=== PATIENT | female | born 1965 | race Caucasian/White ===

== ENCOUNTER 2021-08-01 07:35 | Day surgery (SDC) | payer BC ==
[2021-08-01] MEDS ORDERED: Ringers Lactate 1,000 ML IV ONE (08:02)
[2021-08-01] MEDS ORDERED: MIDAZOLAM HCL 2 MG/2 ML INJ ONE (08:47)
[2021-08-01] MEDS ORDERED: FENTANYL CITR 100 MCG/2 ML ONE (08:47)
[2021-08-01] MEDS ORDERED: propofoL 200 MG/20 ML VIAL IV ONE (08:48)
[2021-08-01] MEDS ORDERED: GLYCOPYRROLATE 0.2 MG/ML SYR ONE (08:50)
[2021-08-01] MEDS ORDERED: dexAMETHasone 10 MG/ML VIAL ONE (08:51)
[2021-08-01] MEDS ORDERED: KETOROLAC 30 MG/ML INJ ONE (08:51)
[2021-08-01] MEDS ORDERED: ONDANSETRON 4 MG/2 ML VIAL ONE (08:52)
[2021-08-01] MEDS ORDERED: EPHEDRINE SULF 50 MG/ML VIAL ONE (09:37)
[2021-08-01] MEDS: LIDOCAINE 1% MPF 2 ML AMPULE ONE ×2 (09:37→10:03)
[2021-08-01 09:58] VITALS: O2SAT 100
[2021-08-01] MEDS ORDERED: LIDOCAINE 1% W/EPI 1:100,000 MDV 20 ML VIAL ONE (09:59)
--- NOTE | 2021-08-01 10:00 | P.BOP ---
Preoperative diagnosis: PMB, Endometrial polyp Postoperative diagnosis: same Primary procedure: hysteroscopy polypectomy d/c w myosure lite Window Shade Ring Coverer: NONE,NONE Estimated blood loss: min Specimen: polyp and emc Findings: polyp in the cavity Anesthesia: General Complications: None Transferred to: Recovery Room
[2021-08-01 11:23] VITALS: BP 115/60; TEMP 96.2
--- NOTE | 2021-08-01 11:24 | OP ---
Date of Procedure: 08/01/2021 Surgeon: Shobha Lopez MD Laborer Pullet Farm: No assistants. Procedure Performed: Hysteroscopy, polypectomy, dilatation and curettage with MyoSure Lite. Specimens: Endometrial curettings. Complications: No complications. Drains: No drains. Condition: Stable. Findings: Endometrial cavity with a polyp about a cm and half arising from the fundal portion up to the endometrium, slightly thickened and mostly unremarkable. The entire cavity was well visualized. Anesthesia: General with LMA and a paracervical block. Indications: The patient is a 56-year-old who had office hysteroscopy. Endometrial polyp was found. For entire removal of the polyp and adequate sampling, she was consented and brought to the [facility]. Description Of Procedure: After informed consent was re-verified, she was taken back to OR, placed i n supine fashion on the operating table. General anesthesia was given. Using an LMA then, she was p laced in a dorsal lithotomy position. Vulva, vagina prepped and draped in a sterile fashion. Specul um placed to expose the cervix. Anterior lip grasped with 2 Allis clamps. Then at the 4 and 8 o'hemal ck positions of the cervical vaginal junction, 10 cc each of the lidocaine 1% with epi was injected f or a block. Then, the cervix was dilated to 16-Gambian. The large MyoSure scope was taken with a 0 d egree lens. After priming the entire machine, then started the procedure. Normal saline was the dis tention medium and set pressure at 80 mmHg. Direct hysteroscopy was performed to enter into the uter ine canal. Endometrial polyp was well visualized. The MyoSure Lite was inserted through the operati ng channel and polypectomy was performed with this. Then, endometrial curettage was also performed w ith the MyoSure Lite. Pictures were taken. All the instruments were removed and scope was pulled ou t. Instrument, needle, and sponge counts were correct at the end of the case. The procedure was com pleted and specimen sent for permanent pathology. She will follow up with me in 1 week and will make a plan. SOULEYMANE/NATHEN Voice ID: [id number] Report ID: [id number]
[2021-08-01] MEDS ORDERED: METOPROLOL TAR 50 MG TAB PO SCH (21:00)
[2021-08-02] MEDS ORDERED: ATORVASTATIN 20 MG TAB PO SCH (09:00)
== END 2021-08-01 11:13 | disposition home or self-care (01) ==
LOC: OR 07:35
PROVIDERS: ATTEND Obstetrics & Gynecology
PROC: 0UDB7ZX Extraction of Endometrium, Via Natural or Artificial Opening, Diagnostic (ICD-10-PCS; 2021-08-01)
PROC: 0UJD8ZZ Inspection of Uterus and Cervix, Via Natural or Artificial Opening Endoscopic (ICD-10-PCS; 2021-08-01)
PROC: 0UB97ZX Excision of Uterus, Via Natural or Artificial Opening, Diagnostic (ICD-10-PCS; principal; 2021-08-01 09:00)
DX: N84.0 Polyp of corpus uteri (principal); Z20.822 Contact with and (suspected) exposure to COVID-19
CPT/HCPCS: 88305; 58558; U0003; J2704; J2250; J3010; J1100; J7120; J2405

== ENCOUNTER 2021-11-14 10:29 | Day surgery (SDC) | payer BC ==
[2021-11-09 12:38] LABS: Absolute Lymphocytes (CBC) 2.5 K/uL (0.7-4.9); Hematocrit 43.4 % (36.0-45.0); Lymphocytes % 28.1 % (15.3-44.8); MPV 9.6 fL (7.6-11.3); RBC Red Blood Cell Count 4.33 M/uL (3.86-4.86)
[2021-11-09 14:02] LABS: Urine Appearance CLEAR (Clear); Urine Bilirubin NEGATIVE (Negative); Urine Blood NEGATIVE (Negative); Urine Color YELLOW (Yellow); Urine Glucose NEGATIVE (Negative); Urine Protein NEGATIVE (Negative)
[2021-11-09 14:03] LABS: Urine Microscopic Reflex NO UMIC; Urine Urobilinogen 0.2 mg/dL (0.2-1.0)
[~2021-11-14 10:29] MED LIST: CEFAZOLIN/SWI 2gm 2 GM/20 ML SYR IVP SCH; Ringers Lactate 1,000 ML IV SCH; SCOPOLAMINE HYDROBROMIDE PATCH TD SCH
[2021-11-14] MEDS ORDERED: Ringers Lactate 1,000 ML IV ONE ×2 (10:50→13:24)
[2021-11-14] MEDS ORDERED: SCOPOLAMINE HYDROBROMIDE PATCH TD ONE (10:50)
[2021-11-14] MEDS ORDERED: CEFAZOLIN/SWI 2gm 2 GM/20 ML SYR ONE (11:02)
[2021-11-14] MEDS ORDERED: LIDOCAINE 2% MPF 5 ML VIAL ONE (12:19)
[2021-11-14] MEDS ORDERED: ROCURONIUM 50 MG/5 ML VIAL IV ONE (12:19)
[2021-11-14] MEDS ORDERED: FENTANYL CITR 250 MCG/5 ML ONE (12:19)
[2021-11-14] MEDS ORDERED: propofoL 200 MG/20 ML VIAL IV ONE (12:19)
[2021-11-14] MEDS ORDERED: MIDAZOLAM HCL 2 MG/2 ML INJ ONE (12:20)
[2021-11-14] MEDS ORDERED: BUPIVACAINE 0.25% PF 10 ML VIAL ONE ×2 (12:24→13:42)
[2021-11-14] MEDS ORDERED: KETOROLAC 30 MG/ML INJ ONE (14:14)
[2021-11-14] MEDS ORDERED: ONDANSETRON 4 MG/2 ML VIAL ONE (14:38)
[2021-11-14] MEDS ORDERED: NEOSTIGMINE 1 MG/ML -5 ML ONE (14:39)
[2021-11-14] MEDS ORDERED: dexAMETHasone 10 MG/ML VIAL ONE (14:39)
[2021-11-14] MEDS ORDERED: PROMETHAZINE INJ 25 MG/ML AMP IV PRN (14:53)
[2021-11-14] MEDS ORDERED: IBUPROFEN 200 MG TAB PO PRN (14:53)
[2021-11-14] MEDS ORDERED: HYDROCODONE/APAP 5/325 MG TAB PO PRN (14:53)
[2021-11-14] MEDS ORDERED: MEPERIDINE HCL 25 MG/ML SYR IM PRN (14:53)
[2021-11-14] MEDS ORDERED: GLYCOPYRROLATE 0.2 MG/ML SYR ONE (15:00)
--- NOTE | 2021-11-14 15:03 | P.BOP ---
Preoperative diagnosis: PMB, uterine polyp Postoperative diagnosis: same, Enlarged appendix Primary procedure: TLH BSO washings, cysto Secondary procedure: Lap appy Foreign Agent: Sharri Schofield (intraop consult Dr Ramirez) Estimated blood loss: min Specimen: uterus tubes ovareis washings Findings: enlarged appendix, tics, left tube adhesred to bowel Anesthesia: General Complications: None Fluids & blood products: 1200 LR 200 UO Transferred to: Recovery Room Condition: Good
[2021-11-14] MEDS ORDERED: Mastisol Adhesive Liq ONE (15:11)
--- NOTE | 2021-11-14 15:40 | P.OP ---
Preoperative diagnosis: Incidental Appendicitis Postoperative diagnosis: Incidental Appendicitis Primary procedure: Laparoscopic Appendectomy Anesthesia: GETA Estimated blood loss: none from appendectomy Findings: enlarged appendix with firmness @ tip Complications: None Transferred to: Recovery Room Condition: Good
[2021-11-14 17:15] VITALS: O2SAT 100
[2021-11-14] MEDS ORDERED: HYDROCODONE/APAP 5/325 MG TAB ONE (17:58)
[2021-11-14 18:13] VITALS: BP 138/64; TEMP 97.1
[2021-11-14] MEDS ORDERED: METOPROLOL TAR 50 MG TAB PO SCH (21:00)
[2021-11-14] MEDS ORDERED: ATORVASTATIN 20 MG TAB PO SCH (21:00)
--- NOTE | 2021-11-15 02:13 | OP ---
Date of Procedure: 11/14/2021 Surgeon: Shobha Lopez MD Paste Maker: Sharri Schofield. Preoperative Diagnoses: Postmenopausal bleeding, uterine polyps. Postoperative Diagnoses: Postmenopausal bleeding, uterine polyps, and enlarged appendix, diverticula, left tubal adhesions. Procedures Performed: Total laparoscopic hysterectomy, bilateral salpingo-oophorectomy, pelvic washi ngs, cystoscopy, intraoperatively consulted Dr. Ramirez for laparoscopic appendectomy. Please refer to his dictation. Estimated Blood Loss: Minimal. Anesthesia: General endotracheal. Specimens: Uterus, tubes, and ovaries, and pelvic washings. Findings: Uterus small, left tubal adhesions to the colon, diverticula seen, and appendix was full a nd slightly knuckled and abnormal in appearance, so intraoperative consult was called. Hysterectomy was completed without any problems, and on cystoscopy, there was normal efflux of urine from both ure teric orifices. No evidence of any trauma to the bladder. Condition: Stable. Urine Output: 200. Lr: 1200. Indication: Postmenopausal bleeding was investigated with a transvaginal ultrasound. Endometrial bi opsy showed uterine polyps. No cancer or atypia was noted, however, with the history of recurrent bl eeding, the patient wanted to proceed with definitive treatment and for prevention of any future poly ps or concerns, so she was given an alternative of surveillance with ultrasound and observation versu s a hysterectomy and she wanted to proceed with laparoscopic hysterectomy. Description Of Procedure: After informed consent was verified, she was brought back to the OR. 2 g of Ancef was given. SCDs were placed. She was placed in supine fashion on the operating table. Gen eral anesthesia was given. The abdomen, vulva, vagina, and perineum prepped and draped in a sterile fashion. Time-out was done. Speculum placed to expose the cervix. Vestibular diameter was small, so a medium VCare manipulator w as introduced into the uterus with a slight laceration of the vestibule. Then, Kennedy was placed to d rain the bladder and attached for retrograde filling. A 1 cm infraumbilical incision was made with a scalpel using the open laparoscopy technique. Fascia was incised, tagged with 0 Vicryl sutures, peritoneum entered bluntly, S retractors were placed, Manjinder on introduced, site of entry was checked and was unremarkable. Upper abdominal surfaces were closely examined. No evidence of any masses or abnormality in the omentum. Upper abdominal surface was unr emarkable. The patient was placed in Trendelenburg and appendix was examined and appeared to be knuc kled and full and slightly more dilated at the distal tip. So, intraoperative consult for Dr. Luz bernard was called, and he performed an appendectomy. After the 10 suprapubic and 5 left lower quadrant ports were placed under direct vision after injecti ng Marcaine at the fascia and the skin, went down to survey the pelvic cavity. The epiploica was pic ked up with 3-0 Monocryl and tagged with hemostats in the left upper quadrant using a Adán-Abdirizak needle, the suture was brought out and tagged. The left tubal adhesions were taken down systematically. Then, an incision was made in the lateral p eritoneum parallel to the IP ligament and once the broad ligament was opened up, another window was m ramesh on the medial aspect of the peritoneum between the ureter and the IP. Then, this was taken down with the help of LigaSure, mesosalpinx dissected, round ligament and broad ligament taken down all th e way to the level of the vessels. The vessels were skeletonized and taken down. The ureter was dis sected and made sure that it was farther away. It was traced to the ureteric tunnel. Anterior vaginal wall was cleared up to expose the VCare cup and bladder dissected down. Posteriorly , peritoneum incised. Cardinal ligaments and the attachment of the uterosacral were left alone and s tayed much higher, and once this was taken down, the opposite side was dissected in a similar fashion to the left. The IP was isolated. Window was made for this. LigaSure was used to take this down. Then mesosalpinx, round ligament, broad ligament were all dissected. Anterior broad ligament connec jerald with the bladder flap and the bladder was dissected inferiorly. Vessels were skeletonized after taking the posterior peritoneum and dissecting laterally to create a good window for the vessels. Th en, vessels were taken down with the help of the LigaSure. I was able to perform a circumferential c olpotomy with the help of a monopolar hook blade and the specimen pulled out through the vagina. Aft er was placed, thorough irrigation and suction were performed. Two angle 0 Vicryl sutures were placed outside the angle for hemostasis as well as good closure and then 2-0 V-Loc was used to c lose the vaginal cuff in 2 layers. Thorough irrigation and suction were performed. There was excell ent hemostasis and reattachment of the uterosacrals to the vaginal cuff as they were not attached. Both pedicles on the ovaries were unremarkable. Both ureters had no evidence of electrical, mechanical integrity specialist al, or thermal injury to them. Went on to do a cystoscopy with a 17-Gabonese sheath, 30-degree lens, normal saline. Both ureteric jeremiah fices had good efflux of urine. No evidence of any trauma or tumor. The bladder was drained and the case was turned over to Dr. Ramirez, who finished the appendix and closed the incisions. EBL was mi nimal. She tolerated the procedure well. She will have 1 week follow up with me, which she has been scheduled preoperatively. SOULEYMANE/NATHEN Voice ID: [id number] Report ID: [id number]
--- NOTE | 2021-11-15 02:34 | OP ---
Date of Procedure: 11/14/2021 Surgeon: Te Ramirez MD, Brief Hpi: The patient is a 56-year-old female brought to the operating room by Dr. Lopez. Dr. Sabino velazquez performed a TAHBSO and noted incidentally that her appendix appeared somewhat enlarged and th ere was firmness at the tip of the appendix. As such, she opted to give me an intraoperative consult to evaluate the appendix and see if there was possible early appendicitis associated in this area as there were some mild inflammatory changes. Preoperative Diagnosis: Incidental appendicitis. Postoperative Diagnosis: Incidental appendicitis. Procedure Performed: Laparoscopic appendectomy. Anesthesia: General endotracheal. Estimated Blood Loss: Zero from appendectomy. Findings: Enlarged appendix with firmness at the tip. Complications: None. Disposition: The patient transferred to recovery room in good condition. Additional Note: Please see Dr. Radha Lopez's full notes and operative report for details rega rding the patient's detailed HPI, as well as her operative portion of the procedure. Procedure In Detail: The patient was anesthetized under general anesthesia and unable to consent for procedure when I was intraoperatively consulted to see the patient's appendix, which I observed afte r patient was prepped and scrubbed, and the TAHBSO was completed. I evaluated the appendix at this p oint and found that there was some firmness at the tip of the appendix and it did appear slightly enl arged and there was a slightly minimally inflamed appearance of the appendix generally. As such, I o pted to proceed with an appendectomy for possible early interval appendicitis. A mesoappendiceal win carlos was created using a [place] retractor. An Endo-AKIRA 45 medeiros load fired across the base of the will endix with good approximation of tissues, then used LigaSure device to take the mesoappendix down wit hout evidence of complication. There was no bleeding for this portion of procedure, EndoCatch bag wa s placed and the appendix placed in EndoCatch bag and removed from the umbilical trocar and sent off for pathologic examination. The abdomen was then insufflated at this point, irrigated slightly this area and suctioned out until dry. The patient was positioned back in neutral position. The 3 trocar sites were observed. There was a 10 mm in the suprapubic position, a 12 mm in the umbilical positio n, and a 5 mm in the left lower quadrant. I proceeded to desufflate the abdomen under direct visuali zation after closing the 10 mm trocar site with a Adán-Abdirizak suture passer with 0 Vicryl in inte rrupted fashion with good approximation of tissues. The umbilical trocar was then removed and the um bilical trocar site was closed using the pre-placed 0 Vicryl sutures with good apposition of tissues. The abdomen was completely desufflated using the 5 mm remaining trocar until completely evacuated a nd this was removed. At this point, all skin incisions were then copiously irrigated and closed with chromic catgut of 4-0 type without evidence of complication and a sterile dressing was placed over t op. The patient tolerated the procedure without evidence of complication, transferred back in good c ondition. All counts were correct at the case for my portion of procedure. Please see Dr. Lopez' s note for full details. COMPA/NATHEN Voice ID: [id number] Report ID: [id number]
== END 2021-11-14 18:05 | disposition home or self-care (01) ==
LOC: OR 10:29
PROVIDERS: ATTEND Obstetrics & Gynecology
PROC: 0UT24ZZ Resection of Bilateral Ovaries, Percutaneous Endoscopic Approach (ICD-10-PCS; 2021-11-14)
PROC: 0UT74ZZ Resection of Bilateral Fallopian Tubes, Percutaneous Endoscopic Approach (ICD-10-PCS; 2021-11-14)
PROC: 0DTJ4ZZ Resection of Appendix, Percutaneous Endoscopic Approach (ICD-10-PCS; 2021-11-14)
PROC: 0UT94ZZ Resection of Uterus, Percutaneous Endoscopic Approach (ICD-10-PCS; principal; 2021-11-14 11:30)
DX: N95.0 Postmenopausal bleeding (principal); N84.0 Polyp of corpus uteri; K37 Unspecified appendicitis; I10 Essential (primary) hypertension; E78.00 Pure hypercholesterolemia, unspecified; Z20.822 Contact with and (suspected) exposure to COVID-19
CPT/HCPCS: 85025; 36415; 86900; 86850; 86901; 81003; 58571; 44970; U0002; J2704; J2250; J3010; J1100; J2710; J0690; J7120 ×2; J2405; 88304; 88305; 88307